=== PATIENT | male | born 1985 ===

== ENCOUNTER 2025-09-10 14:46 | Emergency (ER) | payer MEDICAID, SELFPAY ==
--- NOTE | 2025-09-10 15:16 | PC.NURSE ---
Presents via EMS following being found by PD leaning against pole . Denies any illict drug use. States only took prescriptions meds as prescribed last night and this AM. 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
--- NOTE | 2025-09-10 15:17 | ED_ITS ---
HPI - General Adult General Stated complaint: FALL,?HIT HEAD, ? DRUG USE Time Seen by Provider: 09/10/25 15:17 History of Present Illness ED Provider: Diandra MARTINEZ narrative: The patient is a 40-year-old man. He says that he was recently started on Suboxone and also on hydroxyzine. He says that he has been feeling lightheaded after taking the hydroxyzine. Today he thinks he took the hydroxyzine at about 11 30. He was apparently in a public park in [place] today when he had a near syncopal episode. He says that he got lightheaded and went to the ground, slightly injuring his nose. He does not think that he hit his head in any severe way and he has no pain in his neck. Police found the patient apparently sitting on the ground leaning against a light pole. They called paramedics who transported the patient to the hospital. On arrival here the patient insists that he cannot stay in the emergency room because he asked to pick his children up from the bus stop. He says he needs to take a bus to [place] to get to his children's bus stop. He denies headache. He denies neck pain. He denies chest pain. He denies shortness of breath. He is not suicidal. Related Data Allergies Allergy/AdvReac Type Severity Reaction Status Date / Time clarithromycin (From BIAXIN) Allergy Unknown ITCHY Unverified 07/08/20 15:30 Review of Systems Review of Systems: Yes all other systems are reviewed and are negative PMFSH Social History Social History Advance Directives: No Advance Directives Information Provided: No Physical Exam ED Vital Signs: Vital Signs - 24 hr 09/10/25 15:24 Temperature 0 F L Pulse Rate 0 L Respiratory Rate 0 L Blood Pressure 00/00 L Pulse Oximetry 0 L Const Other: The patient has the appearance of an ordinarily healthy 40-year-old. He is a fit looking 40-year-old who was awake and alert with a normal mental status. No obvious signs of significant injury or any apparent neurological deficit. He does not appear in pain or any respiratory difficulty. HENMT Other: There is a slight abrasion to the tip of the patient's nose but no associated soft tissue swelling. There is a small skin injury to the left frontal scalp (the patient is bald) which the patient attributes to cutting himself shaving his scalp this morning. There was no raccoon eyes. No rachel sign. No significant soft tissue swelling. No trismus. Eyes Other: Pupils are round equal, conjunctivae are clear, extraocular movements intact Neck Other: No posterior midline C-spine tenderness. No pain with range of motion of the neck. The C-spine is clinically clear. Chest Other: No chest wall tenderness Resp Effort & Inspection: normal respiratory effort Auscultation: clear to auscultation bilaterally Cardio Rate: regular rate Rhythm: regular rhythm Heart sounds: S1 normal heart sound present and S2 normal heart sound present GI Other: The abdomen is soft and nontender Skin Other: There is a very slight abrasion to the tip of the patient's nose without associated soft tissue swelling. There is a very slight skin injury to the left frontal scalp that the patient attributes to a shaving injury this morning. Neuro Other: The patient is awake, alert, oriented, appropriate. Mental status is clear. Cognition is appropriate. Cranial nerves 2-12 are intact. He moves his extremities with normal strength and sensation. He has a normal gait. Extrem Other: No deformities or any other sign of injury to the extremities. Psych Other: No suicidal ideation Medical Decision Making Medical Decision Making MDM Narrative: The patient is a 40-year-old male who was brought to the hospital by ambulance after having what sounds like a syncopal or near syncopal episode in a public park today. The patient attributes this episode to symptoms related to his use of Suboxone and hydroxyzine, both of which he says are new medications. The patient was very unhappy about being in the emergency room. He insisted that he be allowed to leave the emergency room immediately. He was not suicidal. He did not seem delusional or irrational or exhibiting any thought disorder. He understands that we have not had any opportunity to evaluate him for any possible alternative cause of his near syncopal or syncopal episode. He understands that we have not had the opportunity to exclude any potentially dangerous process. Nevertheless he insists on discharge. I do not feel there is any indication for me to operate against his wishes. I do not feel that he lacks capacity to make decisions. Although he seems inpatient he does not seem irrational or significantly altered in terms of his mental status or cognition. He was therefore allowed to sign out against medical advice with recommendations to return if he would like additional evaluation. Discharge Plan Discharge Clinical Impression: Episode of syncope Patient Disposition: Left Against Medical Advice Additional Instructions: You seemed to have had a fainting episode today. Since you are not staying for any additional testing it is impossible to be sure that there was no dangerous process at work. Therefore you are being signed out against medical advice. Please follow up soon with any regular doctors that you have or return to the emergency room if you would like additional evaluation. Stand Alone Forms: Against Medical Advice Interventions: ED Discharge Assessment Last Done: 09/10/25 15:24 Discharge Date/Time: 09/10/25 15:37 Print Language: Unable To Collect
[2025-09-10 15:24] VITALS: BP 00/00; PULSE 0; RESP 0; TEMP -17.7; TEMP 0; O2SAT 0
--- OUTSIDE RECORDS SUMMARY | 2025-09-10 20:42 | XMS_ITS | Clinical Summary ---
Author Organization [facility] Address [address] [place] [address] Phone Care Team Providers Care Residential Recycle Driver Name Role Phone Physician, No Pcp Primary Care Provider Unavaila ble Allergies Active Allergy Reactions Criticality Noted Date Comments Biocin 05/29/2025 Medications No known medications Active Problems No known active problems Medical History Medical History Date Comments Umbilical hernia Social History Tobacco Use Types Packs/Day Years Used Date Smoking Tobacco: Never Assessed Sex and Gender Information Value Date Recorded Sex Assigned at Not on file Legal Sex Male 12:25 PM EST Gender Identity Not on file Sexual Orientation Not on file Obstetrics History Last Filed Vital Signs Vital Sign Reading Time Taken Comments Blood Pressure 126/87 05/29/2025 11:49 AM EDT Pulse 70 05/29/2025 11:49 AM EDT Temperature 36.9 C (98.4 F) 05/29/2025 11:49 AM EDT Respiratory Rate 18 05/29/2025 11:49 AM EDT Oxygen Saturation 97% 05/29/2025 11:49 AM EDT Inhaled Oxygen Concentration - - Weight 80.7 kg (178 lb) 05/29/2025 12:08 PM EDT Height 175.3 cm (5' 9 ) 05/29/2025 12:08 PM EDT Body Mass Index 26.29 05/29/2025 12:08 PM EDT Plan of Treatment Health Maintenance Due Date Last Done Comments DTaP,Tdap,and Td Vaccines (1 - Tdap) 02/24/2003 Hepatitis B Vaccines (1 of 3 - 19+ 3-dose series) 02/24/2003 HPV Vaccines (1 - 3-dose SCD M series) 02/24/2011 Cholesterol Screening (Lipid Panel) 11/20/2023 HIV Screening 11/20/2023 Hepatitis C Screening 11/20/2023 Social Influencers of Health Screening 11/20/2023 Depression Screening 10/22/2024 COVID-19 Vaccine (1 - 2024-2 6 season) 2025 Influenza Vaccine (#1) 2025 RSV Immunization Adult Patie nts (1 - 1-dose 75+ series) 02/24/2059 HIB Vaccines Aged Out No longer eligi ble based on patient's age to complete this topic Hepatitis A Vaccines Aged Out No long er eligible based on patient's age to complete this topic IPV Vaccines Aged Out No longer eligi ble based on patient's age to complete this topic MMR Vaccines Aged Out No longer eligi ble based on patient's age to complete this topic Meningococcal ACWY Vaccine Aged Out N o longer eligible based on patient's age to complete this topic Meningococcal B Vaccine Aged Out No l onger eligible based on patient's age to complete this topic Pneumococcal Vaccine: Pediat rics (0 to 5 Years) and At-Risk Patients (6 to 49 Years) Aged Out No longer eligible b ased on patient's age to complete this topic RSV Immunization Patients Un kenji 20 months Aged Out No longer eligible b ased on patient's age to complete this topic Varicella Vaccines Aged Out No longer eligible based on patient's age to complete this topic Insurance [place] Care Teams Residential Recycle Driver Relationship Specialty Start Date End Date Physician, No Pcp PCP - General 05/29/25
--- OUTSIDE RECORDS SUMMARY | 2025-09-10 20:42 | XMS_ITS | Clinical Summary ---
Author Organization [employer] Address [address] [place] [address] Care Team Providers Care Government Auditor Name Role Phone Unavailable Primary Care Provider Unavailabl e Social History Tobacco Use Types Packs/Day Years Used Date Smoking Tobacco: Never Assessed Sex and Gender Information Value Date Recorded Sex Assigned at Not on file Legal Sex Male 10:29 AM EST Gender Identity Not on file Sexual Orientation Not on file Plan of Treatment Health Maintenance Due Date Last Done Comments Depression Screening 1984 HIV Screening 1984 Lipid Panel 1984 SDOH Screening 1984 Disability Screening 1984 Alcohol/Substance Use Screening 1996 Tobacco Screening 1996 Family Planning (PISQ) 02/24/1999 HPV Vaccines (1 - Male 3-dos e series) 02/24/1999 Hepatitis C Screening 02/24/2002 DTaP/Tdap/Td Vaccines (1 - Tdap) 02/24/2003 Hepatitis B Vaccines (1 of 3 - 19+ 3-dose series) 02/24/2003 COVID-19 Vaccine (1 - 2024-2 6 season) 2025 Influenza Vaccine (#1) 2025 Zoster Vaccines (1 of 2) 02/24/2034 RSV Patients and Pa tients Aged 60 years or older (1 - 1-dose 75+ series) 02/24/2059 HIB [...] patient's age to complete this topic Meningococcal Vaccine Aged Out No isiah sophia eligible based on patient's age to complete this topic Pneumococcal Vaccine: Pediat rics (0 to 5 Years) and At-Risk Patients (6 to 49) Years Aged Out No longer eligible b ased on patient's age to complete this topic RSV under 20 months Aged Out No longe r eligible based on patient's age to complete this topic Rotavirus Vaccines Aged Out No longer eligible based on patient's age to complete this topic
== END 2025-09-10 15:37 | disposition left against medical advice (07) ==
LOC: HO.ED 15:34
PROVIDERS: Emergency Provider Emergency Medicine
DX: R42 Dizziness and giddiness (principal); Z53.29 Procedure and treatment not carried out because of patient's decision for other reasons